=== PATIENT | female | born 1980 ===

== ENCOUNTER 2019-01-21 22:51 | Inpatient (IN) | payer MEDICAID ==
[2019-01-21] MEDS ORDERED: Misoprostol 200 MCG Tab PO PRN (23:09)
[2019-01-21] MEDS ORDERED: Methylergonovine 0.2 MG/1 ML Amp IM PRN (23:09)
[2019-01-21] MEDS ORDERED: Water For Irrigation,Sterile 1,000 ML Container IRR PRN (23:09)
[2019-01-21] MEDS ORDERED: Lidocaine 1% 50 ML MDV INJECT PRN (23:09)
[2019-01-21] MEDS ORDERED: Sodium Chloride 0.9% 2.5 ML Syringe FLUSH PRN (23:09)
[2019-01-21] MEDS ORDERED: Butorphanol 1 MG/ML SDV IVPUSH PRN (23:09)
[2019-01-21] MEDS ORDERED: Nalbuphine 10 MG/1 ML Vial IVPUSH PRN (23:09)
[2019-01-21] MEDS ORDERED: Carboprost Tromethamine 250 MCG/1 ML Amp IM PRN (23:09)
[2019-01-21] MEDS ORDERED: Tranexamic Acid 1,000 MG in Sodium Chloride 0.9% 100 ML IV PRN (23:09)
[2019-01-21] MEDS ORDERED: Sodium Chloride 0.9% 10 ML Syringe FLUSH PRN (23:09)
[2019-01-21] MEDS ORDERED: Terbutaline 1 MG/ML SDV SUBCUT PRN (23:10)
[2019-01-21] MEDS ORDERED: Misoprostol 25 MCG (1/4 of 100 MCG) Tab VAG PRN (23:10)
[2019-01-21] MEDS ORDERED: Oxytocin/0.9 % Sodium Chloride 30 UNIT/500 ML BAG IV SCH ×2 (23:15)
[2019-01-21] MEDS ORDERED: Misoprostol 25 MCG (1/4 of 100 MCG) Tab PO ONE (23:56)
[2019-01-22] MEDS: Misoprostol 25 MCG (1/4 of 100 MCG) Tab VAG PRN ×2 (00:10→04:21)
[2019-01-22] MEDS ORDERED: Ondansetron 4 MG/2 ML SDV IVPUSH PRN ×3 (00:51→23:37)
[2019-01-22] MEDS ORDERED: Misoprostol 25 MCG (1/4 of 100 MCG) Tab PO PRN (00:53)
[2019-01-22] MEDS: Lactated Ringers 1,000 ML IV SCH ×3 (08:25→11:48)
[2019-01-22] MEDS ORDERED: fentaNYL 100 MCG/2 ML SDV ONE (08:46)
[2019-01-22] MEDS ORDERED: Lidocaine HCl/EPINEPHrine 5 ML IJ ONE ×2 (08:46→09:54)
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
[2019-01-22] MEDS ORDERED: Benzocaine/Menthol 20%-0.5% Spray 78 GM Cannister TOP PRN (17:11)
[2019-01-22] MEDS ORDERED: Docusate Sodium 100 MG Cap PO PRN (17:11)
[2019-01-22] MEDS ORDERED: Acetaminophen 500 MG Tab PO PRN ×2 (17:11)
[2019-01-22] MEDS ORDERED: Bisacodyl 10 MG Supp RECTAL PRN ×2 (17:11→23:37)
[2019-01-22] MEDS ORDERED: Ibuprofen 400 MG Tab PO PRN (17:11)
[2019-01-22] MEDS ORDERED: oxyCODONE 5 MG Tab PO PRN (17:11)
[2019-01-22] MEDS ORDERED: Witch Hazel Medicated Pads 40/Jar TOP PRN (17:11)
[2019-01-22] MEDS ORDERED: Lanolin 100% Cream 7 GM Tube TOP PRN ×2 (17:11→23:37)
[2019-01-22] MEDS ORDERED: Ibuprofen 800 MG Tab PO PRN ×2 (17:11→23:37)
[2019-01-22] MEDS ORDERED: Bupivacaine 0.25% 10 ML SDV ONE ×2 (19:14→19:17)
[2019-01-22] MEDS ORDERED: Bupivacaine 0.5% 10 ML SDV ONE ×2 (19:14→20:24)
[2019-01-22] MEDS ORDERED: Morphine PF 10 MG/10 ML SDV ONE (21:09)
[2019-01-22] MEDS ORDERED: Octyl 2-Cyanoacrylate 1 Tube ONE (21:16)
[2019-01-22] MEDS ORDERED: Ketorolac 30 MG/ML SDV ONE (21:20)
[2019-01-22] MEDS ORDERED: Meperidine PF 25 MG/ML Syringe IVPUSH ONE (21:26)
[2019-01-22] MEDS ORDERED: HYDROmorphone 2 MG/ML SDV IVPUSH ONE (21:26)
[2019-01-22] MEDS ORDERED: fentaNYL 100 MCG/2 ML SDV IVPUSH PRN ×2 (21:26→23:22)
[2019-01-22] MEDS ORDERED: Acetaminophen/oxyCODONE 325-5 MG Tab PO PRN ×2 (23:22→23:37)
[2019-01-22] MEDS ORDERED: diphenhydrAMINE 50 MG/ML SDV IVPUSH PRN ×2 (23:22→23:37)
[2019-01-22] MEDS ORDERED: Naloxone 0.4 MG/ML Syringe IVPUSH PRN (23:22)
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
[2019-01-22] MEDS ORDERED: Lactated Ringers 1,000 ML IV SCH (23:45)
[2019-01-23] MEDS: Nalbuphine 10 MG/1 ML Vial IVPUSH PRN ×2 (00:44→06:36)
[2019-01-23] MEDS: Ketorolac 30 MG/ML SDV IVPUSH SCH ×5 (04:13→22:09)
--- NOTE | 2019-01-23 09:02 | PCM.OPNOTE ---
- General Post-Op/Procedure Note Date of Surgery/Procedure: 01/23/19 Operative Procedure(s): Primary C/section. Pre Op Diagnosis: IUP post date, Failar to progres Post-Op Diagnosis: Same Anesthesia Technique: Epidural Primary Surgeon: Junito Gibbons EBL in mLs: 800 Complications: None Condition: Good Free Text/Narrative:: Intake & Output 01/22/19 01/23/19 01/23/19 22:59 06:59 14:59 Intake Total 800 Balance 800
--- NOTE | 2019-01-23 09:06 | PCM.PNPP ---
- General Info Date of Service: 01/23/19 Functional Status: Reports: Pain Controlled - Review of Systems General: Reports: No Symptoms HEENT: Reports: No Symptoms Pulmonary: Reports: No Symptoms Cardiovascular: Reports: No Symptoms Gastrointestinal: Reports: No Symptoms Genitourinary: Reports: No Symptoms Musculoskeletal: Reports: No Symptoms Skin: Reports: No Symptoms Neurological: Reports: No Symptoms Psychiatric: Reports: No Symptoms - General Info Date of Service: 01/23/19 - Patient Data Vital Signs - Most Recent: Last Vital Signs Temp 36.6 C 01/23/19 07:00 Pulse 77 01/23/19 07:00 Resp 16 01/23/19 07:00 BP 94/50 L 01/23/19 07:00 Pulse Ox 96 01/23/19 07:00 Weight - Most Recent: 91.626 kg I&O - Last 24 Hours: Intake & Output 01/22/19 01/23/19 01/23/19 22:59 06:59 14:59 Intake Total 800 Balance 800 Lab Results - Last 24 Hours: Laboratory Results - last 24 hr 01/23/19 Range/Units 05:35 Hgb 8.8 L (12.0-16.0) g/dL Hct 26.2 L (36.0-46.0) % Med Orders - Current: Current Medications Bisacodyl (Dulcolax) 10 mg RECTAL ONETIME PRN PRN Reason: Constipation Butorphanol Tartrate (Stadol) 1 mg IVPUSH Q1H PRN PRN Reason: Pain Carboprost Tromethamine (Hemabate Ds) 250 mcg IM ASDIRECTED PRN PRN Reason: Post Hemorrhage Diphenhydramine HCl (Benadryl) 25 mg IVPUSH Q4H PRN PRN Reason: Itching Stop: 01/23/19 23:22 Diphenhydramine HCl (Benadryl) 25 mg IVPUSH Q6H PRN PRN Reason: Itching or Nausea Docusate Sodium (Colace) 100 mg PO BID AYSHA Emollient Ointment (Lansinoh Hpa) 0 gm TOP ASDIRECTED PRN PRN Reason: Sore Nipples Fentanyl (Sublimaze) 50 mcg IVPUSH Q5M PRN PRN Reason: Pain (severe 7-10) Stop: 01/23/19 21:27 Fentanyl (Sublimaze) 50 mcg IVPUSH Q1H PRN PRN Reason: Pain (severe 7-10) Lactated Ringer's (Ringers, Lactated) 1,000 mls @ 150 mls/hr IV ASDIRECTED [facility] Last Admin: 01/22/19 11:48 Dose: 150 mls/hr Oxytocin/Sodium Chloride (Oxytocin 30 Unit/500 Ml-Ns) 30 unit in 500 mls @ 500 mls/hr IV TITRATE [facility] Tranexamic Acid 1,000 mg/ (Sodium Chloride) 110 mls @ 660 mls/hr IV ONETIME PRN PRN Reason: Bleeding Oxytocin/Sodium Chloride (Oxytocin 30 Unit/500 Ml-Ns) 30 unit in 500 mls @ 2 mls/hr IV TITRATE [facility]; Protocol Last Admin: 01/22/19 13:27 Dose: 2 munits/min, 2 mls/hr Lactated Ringer's (Ringers, Lactated) 1,000 mls @ 125 mls/hr IV ASDIRECTED [facility] Last Admin: 01/23/19 00:44 Dose: 125 mls/hr Ibuprofen (Motrin) 800 mg PO Q8H PRN PRN Reason: mild pain or fever Ketorolac Tromethamine (Toradol) 30 mg IVPUSH Q6H [facility] Stop: 01/23/19 21:01 Last Admin: 01/23/19 04:14 Dose: 30 mg Lidocaine HCl (Xylocaine 1%) 50 ml INJECT ONETIME PRN PRN Reason: Laceration repair Methylergonovine Maleate (Methergine) 0.2 mg IM ASDIRECTED PRN PRN Reason: Post Hemorrhage Misoprostol (Cytotec) 200 mcg PO ONETIME PRN PRN Reason: Post Hemorrhage Misoprostol (Cytotec) 25 mcg VAG ONETIME PRN PRN Reason: Cervical Ripening Last Admin: 01/22/19 04:21 Dose: 25 mcg Misoprostol (Cytotec) 25 mcg VAG Q4H PRN PRN Reason: Cervical Ripening Last Admin: 01/22/19 04:20 Dose: 25 mcg Misoprostol (Cytotec) 25 mcg PO Q4H PRN PRN Reason: cervical ripening Nalbuphine HCl (Nubain) 10 mg IVPUSH Q1H PRN PRN Reason: Pain (severe 7-10) Nalbuphine HCl (Nubain) 5 mg IVPUSH ASDIRECTED PRN PRN Reason: Itching Last Admin: 01/23/19 06:36 Dose: 5 mg Naloxone HCl (Narcan) 0.1 mg IVPUSH ONETIME PRN PRN Reason: Respiratory Depression Stop: 01/23/19 23:22 Ondansetron HCl (Zofran) 4 mg IVPUSH Q6H PRN PRN Reason: Nausea/Vomiting Last Admin: 01/23/19 00:30 Dose: 4 mg Ondansetron HCl (Zofran) 4 mg IVPUSH Q6H PRN PRN Reason: Nausea Ondansetron HCl (Zofran) 4 mg IVPUSH Q4H PRN PRN Reason: Nausea/Vomiting Oxycodone/Acetaminophen (Percocet 325-5 Mg) 2 tab PO Q6H PRN PRN Reason: Pain (moderate 4-6) Oxycodone/Acetaminophen (Percocet 325-5 Mg) 1 tab PO Q4H PRN PRN Reason: Pain (moderate 4-6) Oxycodone/Acetaminophen (Percocet 325-5 Mg) 2 tab PO Q4H PRN PRN Reason: Pain (moderate 4-6) Sodium Chloride (Saline Flush) 10 ml FLUSH ASDIRECTED PRN PRN Reason: Keep Vein Open Sodium Chloride (Saline Flush) 2.5 ml FLUSH ASDIRECTED PRN PRN Reason: Keep Vein Open Sterile Water (Sterile Water For Irrigation) 1,000 ml IRR ASDIRECTED PRN PRN Reason: delivery Terbutaline Sulfate (Brethine) 0.25 mg SUBCUT ASDIRECTED PRN PRN Reason: Tacysystole Discontinued Medications Bupivacaine HCl (Sensorcaine-Mpf 0.5%) Confirm Administered Dose 10 ml .ROUTE .STK-MED ONE Stop: 01/22/19 19:15 Bupivacaine HCl (Sensorcaine-Mpf 0.25%) Confirm Administered Dose 10 ml .ROUTE .STK-MED ONE Stop: 01/22/19 19:15 Bupivacaine HCl (Sensorcaine-Mpf 0.25%) Confirm Administered Dose 10 ml .ROUTE .STK-MED ONE Stop: 01/22/19 19:18 Bupivacaine HCl (Sensorcaine-Mpf 0.5%) Confirm Administered Dose 10 ml .ROUTE .STK-MED ONE Stop: 01/22/19 20:25 Fentanyl (Sublimaze) Confirm Administered Dose 100 mcg .ROUTE .STK-MED ONE Stop: 01/22/19 08:47 Hydromorphone HCl (Dilaudid) 2 mg IVPUSH ONETIME ONE Stop: 01/22/19 21:27 Fentanyl/Bupivacaine HCl (Bqqslypf-Ysfrt-Br 2 Mcg/Ml-0.125%) Confirm Administered Dose 100 mls @ as directed .ROUTE .STK-MED ONE Stop: 01/22/19 08:47 Fentanyl/Bupivacaine HCl (Dqmxlpcp-Luaes-Fr 2 Mcg/Ml-0.125%) Confirm Administered Dose 100 mls @ as directed .ROUTE .STK-MED ONE Stop: 01/22/19 15:10 Ketorolac Tromethamine (Toradol) Confirm Administered Dose 30 mg .ROUTE .STK- MED ONE Stop: 01/22/19 21:21 Lidocaine/Epinephrine (Lidocaine 1.5%-Epi 1:200,000) Confirm Administered Dose 5 ml IJ .STK-MED ONE Stop: 01/22/19 08:47 Lidocaine/Epinephrine (Lidocaine 1.5%-Epi 1:200,000) Confirm Administered Dose 5 ml IJ .STK-MED ONE Stop: 01/22/19 09:55 Meperidine HCl (Demerol) 12.5 mg IVPUSH ONETIME ONE Stop: 01/22/19 21:27 Misoprostol (Cytotec) 25 mcg PO ONETIME ONE Stop: 01/21/19 23:57 Last Admin: 01/22/19 00:13 Dose: 25 mcg Morphine Sulfate (Duramorph Pf) Confirm Administered Dose 10 mg .ROUTE .STK-MED ONE Stop: 01/22/19 21:10 Octyl Cyanoacrylate (Dermabond Advance) Confirm Administered Dose 1 applic .ROUTE .STK-MED ONE Stop: 01/22/19 21:17 - Interaction Disposition, : [place] in Room with Family Infant Interaction: Holding Infant Feeding: Attempted ; Nursed Fair/Poor Support Person: Other (see below) - Recovery Exam Fundal Tone: Firm Fundal Level: At Umbilicus Fundal Placement: Midline Lochia Amount: Small Lochia Color: Rubra/Red Perineum Description: Other (see below) Other Perinuem Description: swollen-ice pack applied Episiotomy/Laceration: None Bladder Status: Indwelling Catheter in Place - Exam General: Alert, Oriented HEENT: Pupils Equal Neck: Supple Lungs: Clear to Auscultation, Normal Respiratory Effort Cardiovascular: Regular Rate, Regular Rhythm GI/Abdominal Exam: Normal Bowel Sounds, Soft, Non-Tender, No Organomegaly, No Distention, No Abnormal Bruit, No Mass, Pelvis Stable Extremities: Normal Inspection, Normal Range of Motion, Non-Tender, No Pedal Edema, Normal Capillary Refill Skin: Warm, Dry, Intact Wound/Incisions: Healing Well Neurological: No New Focal Deficit Psy/Mental Status: Alert, Normal Affect, Normal Mood - Problem List Review Problem List Initiated/Reviewed/Updated: Yes - My Orders Last 24 Hours: My Active Orders 01/22/19 17:11 May Shower [RC] ASDIRECTED Up ad Licha [RC] ASDIRECTED Vital Signs [RC] PER UNIT ROUTINE 01/22/19 21:00 Ketorolac [Toradol] 30 mg IVPUSH Q6H 01/22/19 23:37 Patient Status [ADT] Routine Ambulate [RC] PER UNIT ROUTINE Communication Order [RC] PER UNIT ROUTINE Communication Order [RC] PER UNIT ROUTINE Communication Order [RC] Per Unit Routine May Shower [RC] ASDIRECTED Notify Provider Intake and Out [RC] ASDIRECTED Notify Provider Vital Signs [RC] ASDIRECTED RT Incentive Spirometry [RC] Q2HWA Vital Signs [RC] PER UNIT ROUTINE Acetaminophen/oxyCODONE [Percocet 325-5 MG] 1 tab PO Q4H PRN Acetaminophen/oxyCODONE [Percocet 325-5 MG] 2 tab PO Q4H PRN Bisacodyl [Dulcolax] 10 mg RECTAL ONETIME PRN Ibuprofen [Motrin] 800 mg PO Q8H PRN Lanolin [Lansinoh HPA] See Dose Instructions TOP ASDIRECTED PRN Ondansetron [Zofran] 4 mg IVPUSH Q4H PRN diphenhydrAMINE [Benadryl] 25 mg IVPUSH Q6H PRN Assess Lochia [WOMSER] Per Unit Routine Assess Uterine Involution [WOMSER] Per Unit Routine Breast Pump [WOMSER] Per Unit Routine Peripheral IV Discontinue [OM.PC] Routine Sequential Compression Device [OM.PC] Per Unit Routine 01/22/19 23:38 Antiembolic Devices [RC] PER UNIT ROUTINE 01/22/19 23:45 Lactated Ringers [Ringers, Lactated] 1,000 ml IV ASDIRECTED 01/23/19 09:00 Docusate Sodium [Colace] 100 mg PO BID - Assessment Assessment:: Status post section postoperative day #1 patient is doing well Lam catheter is DC'd incision is clear normal location vital signs stable. Provide regular care and considering discharge in a.m. - Plan Plan:: Term admitted for elective induction.
[2019-01-23] MEDS: Docusate Sodium 100 MG Cap PO SCH ×2 (09:33→20:24)
--- NOTE | 2019-01-23 13:04 | OR ---
SURGEON: Junito Gibbons MD DATE OF PROCEDURE: PREOPERATIVE DIAGNOSIS: Intrauterine , 40 weeks plus failure to descend in persistent occiput posterior. POSTOPERATIVE DIAGNOSIS: Intrauterine , 40 weeks plus failure to descend in persistent occiput posterior. OPERATION PERFORMED: Primary low-transverse section. [employer] DIV[employer] LIEUTENANT: OR tech. ANESTHESIA: Epidural. ANESTHESIOLOGISTS: Nurse wildlife manager and Dr. Bernard. ESTIMATED BLOOD LOSS: 800 mL. NATIONAL SALES EXECUTIVE: Winnie Dalton MD COMPLICATIONS: None. INDICATION FOR SURGERY: This patient is 38 years old. She is followed in our practice. She is 40+ weeks. She is para 2-0-0-2, both of them delivered by spontaneous vaginal delivery. She is admitted for elective induction. The patient has responded to Cytotec and Pitocin. She progressed out slowly to complete vertex and 0 to +1 station. She pushed in excess of 2 hours without further descent of the fetus. I evaluated it and said the patient that the fetus was in an occiput posterior position. I explained that to the patient and I attempted to do a kiwi extraction and rotation that was unsuccessful, and so we proceeded to do primary low-transverse section. PROCEDURE IN DETAIL: The patient was brought to the OR, properly identified, and after adequate level of epidural anesthesia with a Lam catheter in the bladder, the patient was prepped and draped in sterile fashion as usual. After taking time-out, a low- transverse Pfannenstiel skin incision was done. Mario's fascia and rectus fascia were opened in direction of the incision. The two recti muscles were and peritoneal cavity was entered. Bladder flap was raised in the usual manner pushing the bladder away from the lower uterine segment. Low transverse uterine incision was done and extended manually with the hand. Fetus was in occiput posterior position and delivered without any problem and handed to Dr. Dalton, the engine maintenance mechanic who was requested at the time of delivery. The fetus cried immediately and later on, the scores were reported to be 8 and 9, the weight was not available. The placenta delivered spontaneous, complete, and intact, and then repair of the lower uterine segment was done with 2-0 Vicryl continuous interlocking in 2 layers. Reperitonealization done with 3-0 Vicryl continuous, and then the peritoneal cavity evacuated completely from all blood and blood clot and closed with 3-0 Vicryl continuous. The rectus fascia was closed with #1 PDS double strand continuous, the Mario's fascia with 3-0 Vicryl continuous, and the skin was closed with skin clips, Insorb, and Dermabond. Instrument and sponge counts were correct. The patient tolerated the procedure well, went to recovery room in stable general condition. GWEN / GIANCARLO /[id number]
[2019-01-24] MEDS: Acetaminophen/oxyCODONE 325-5 MG Tab PO PRN ×2 (05:10→12:25)
[2019-01-24] MEDS: Docusate Sodium 100 MG Cap PO SCH (09:06)
--- NOTE | 2019-01-24 09:20 | PCM.DCSUM1 ---
Discharge Summary - Hospital Course Diagnosis: Stroke: No - Discharge Data Discharge Date: 01/24/19 Discharge Disposition: Home, Self-Care 01 Condition: Good - Patient Summary/Data Operative Procedure(s) Performed: Primary C/section. - Patient Instructions Diet: Usual Diet as Tolerated Activity: As Tolerated Driving: Do Not Drive Showering/Bathing: May Shower Wound/Incision Care: Keep Operative Site/Wound Site Clean and Dry - Discharge Plan Home Medications: Home Meds Docusate Sodium [Colace] 50 mg PO DAILY 01/21/19 [History] Piv177/FA/Omega3/Dha/Fish Oil [ Gummies] 1 tab PO DAILY 01/21/19 [ History] Referrals: [facility] [Outside] Junito Gibbons MD [Physician] - 03/04/19 1:30 pm (1 week 01/29 @8:[address] Gibbons) - Discharge Summary/Plan Comment DC Time >30 min.: Yes - General Info Date of Service: 01/24/19 Functional Status: Reports: Pain Controlled - Review of Systems General: Reports: No Symptoms HEENT: Reports: No Symptoms Pulmonary: Reports: No Symptoms Cardiovascular: Reports: No Symptoms Gastrointestinal: Reports: No Symptoms Genitourinary: Reports: No Symptoms Musculoskeletal: Reports: No Symptoms Skin: Reports: No Symptoms Neurological: Reports: No Symptoms Psychiatric: Reports: No Symptoms - Patient Data Vitals - Most Recent: Last Vital Signs Temp 36.6 C 01/24/19 07:50 Pulse 89 01/24/19 07:50 Resp 18 01/24/19 07:50 BP 99/52 L 01/24/19 07:50 Pulse Ox 98 01/24/19 07:50 Weight - Most Recent: 91.626 kg Med Orders - Current: Current Medications Bisacodyl (Dulcolax) 10 mg RECTAL ONETIME PRN PRN Reason: Constipation Butorphanol Tartrate (Stadol) 1 mg IVPUSH Q1H PRN PRN Reason: Pain Carboprost Tromethamine (Hemabate Ds) 250 mcg IM ASDIRECTED PRN PRN Reason: Post Hemorrhage Diphenhydramine HCl (Benadryl) 25 mg IVPUSH Q6H PRN PRN Reason: Itching or Nausea Docusate Sodium (Colace) 100 mg PO BID AYSHA Last Admin: 01/24/19 09:06 Dose: 100 mg Emollient Ointment (Lansinoh Hpa) 0 gm TOP ASDIRECTED PRN PRN Reason: Sore Nipples Fentanyl (Sublimaze) 50 mcg IVPUSH Q1H PRN PRN Reason: Pain (severe 7-10) Lactated Ringer's (Ringers, Lactated) 1,000 mls @ 150 mls/hr IV ASDIRECTED [facility] Last Admin: 01/22/19 11:48 Dose: 150 mls/hr Oxytocin/Sodium Chloride (Oxytocin 30 Unit/500 Ml-Ns) 30 unit in 500 mls @ 500 mls/hr IV TITRATE AYSHA Tranexamic Acid 1,000 mg/ (Sodium Chloride) 110 mls @ 660 mls/hr IV ONETIME PRN PRN Reason: Bleeding Oxytocin/Sodium Chloride (Oxytocin 30 Unit/500 Ml-Ns) 30 unit in 500 mls @ 2 mls/hr IV TITRATE [facility]; Protocol Last Admin: 01/22/19 13:27 Dose: 2 munits/min, 2 mls/hr Lactated Ringer's (Ringers, Lactated) 1,000 mls @ 125 mls/hr IV ASDIRECTED [facility] Last Admin: 01/23/19 00:44 Dose: 125 mls/hr Ibuprofen (Motrin) 800 mg PO Q8H PRN PRN Reason: mild pain or fever Lidocaine HCl (Xylocaine 1%) 50 ml INJECT ONETIME PRN PRN Reason: Laceration repair Methylergonovine Maleate (Methergine) 0.2 mg IM ASDIRECTED PRN PRN Reason: Post Hemorrhage Misoprostol (Cytotec) 200 mcg PO ONETIME PRN PRN Reason: Post Hemorrhage Misoprostol (Cytotec) 25 mcg VAG ONETIME PRN PRN Reason: Cervical Ripening Last Admin: 01/22/19 04:21 Dose: 25 mcg Misoprostol (Cytotec) 25 mcg VAG Q4H PRN PRN Reason: Cervical Ripening Last Admin: 01/22/19 04:20 Dose: 25 mcg Misoprostol (Cytotec) 25 mcg PO Q4H PRN PRN Reason: cervical ripening Nalbuphine HCl (Nubain) 10 mg IVPUSH Q1H PRN PRN Reason: Pain (severe 7-10) Nalbuphine HCl (Nubain) 5 mg IVPUSH ASDIRECTED PRN PRN Reason: Itching Last Admin: 01/23/19 06:36 Dose: 5 mg Ondansetron HCl (Zofran) 4 mg IVPUSH Q6H PRN PRN Reason: Nausea/Vomiting Last Admin: 01/23/19 00:30 Dose: 4 mg Ondansetron HCl (Zofran) 4 mg IVPUSH Q6H PRN PRN Reason: Nausea Ondansetron HCl (Zofran) 4 mg IVPUSH Q4H PRN PRN Reason: Nausea/Vomiting Oxycodone/Acetaminophen (Percocet 325-5 Mg) 2 tab PO Q6H PRN PRN Reason: Pain (moderate 4-6) Oxycodone/Acetaminophen (Percocet 325-5 Mg) 1 tab PO Q4H PRN PRN Reason: Pain (moderate 4-6) Oxycodone/Acetaminophen (Percocet 325-5 Mg) 2 tab PO Q4H PRN PRN Reason: Pain (moderate 4-6) Last Admin: 01/24/19 05:10 Dose: 2 tab Sodium Chloride (Saline Flush) 10 ml FLUSH ASDIRECTED PRN PRN Reason: Keep Vein Open Sodium Chloride (Saline Flush) 2.5 ml FLUSH ASDIRECTED PRN PRN Reason: Keep Vein Open Sterile Water (Sterile Water For Irrigation) 1,000 ml IRR ASDIRECTED PRN PRN Reason: delivery Terbutaline Sulfate (Brethine) 0.25 mg SUBCUT ASDIRECTED PRN PRN Reason: Tacysystole Discontinued Medications Bupivacaine HCl (Sensorcaine-Mpf 0.5%) Confirm Administered Dose 10 ml .ROUTE .STEmerging Threats-MED ONE Stop: 01/22/19 19:15 Last Admin: 01/23/19 12:41 Dose: Not Given Bupivacaine HCl (Sensorcaine-Mpf 0.25%) Confirm Administered Dose 10 ml .ROUTE .STEmerging Threats-MED ONE Stop: 01/22/19 19:15 Last Admin: 01/23/19 12:41 Dose: Not Given Bupivacaine HCl (Sensorcaine-Mpf 0.25%) Confirm Administered Dose 10 ml .ROUTE .STEmerging Threats-MED ONE Stop: 01/22/19 19:18 Last Admin: 01/23/19 12:42 Dose: Not Given Bupivacaine HCl (Sensorcaine-Mpf 0.5%) Confirm Administered Dose 10 ml .ROUTE .STK-MED ONE Stop: 01/22/19 20:25 Last Admin: 01/23/19 12:42 Dose: Not Given Diphenhydramine HCl (Benadryl) 25 mg IVPUSH Q4H PRN PRN Reason: Itching Stop: 01/23/19 23:22 Fentanyl (Sublimaze) Confirm Administered Dose 100 mcg .ROUTE .STK-MED ONE Stop: 01/22/19 08:47 Last Admin: 01/23/19 12:41 Dose: Not Given Fentanyl (Sublimaze) 50 mcg IVPUSH Q5M PRN PRN Reason: Pain (severe 7-10) Stop: 01/23/19 21:27 Hydromorphone HCl (Dilaudid) 2 mg IVPUSH ONETIME ONE Stop: 01/22/19 21:27 Last Admin: 01/23/19 12:43 Dose: Not Given Fentanyl/Bupivacaine HCl (Rlrdmdsi-Fzegg-Lp 2 Mcg/Ml-0.125%) Confirm Administered Dose 100 mls @ as directed .ROUTE .STK-MED ONE Stop: 01/22/19 08:47 Last Admin: 01/23/19 12:40 Dose: Not Given Fentanyl/Bupivacaine HCl (Ltimxpro-Ouvgk-Dk 2 Mcg/Ml-0.125%) Confirm Administered Dose 100 mls @ as directed .ROUTE .STK-MED ONE Stop: 01/22/19 15:10 Last Admin: 01/23/19 12:41 Dose: Not Given Ketorolac Tromethamine (Toradol) Confirm Administered Dose 30 mg .ROUTE .STK- MED ONE Stop: 01/22/19 21:21 Ketorolac Tromethamine (Toradol) 30 mg IVPUSH Q6H AYSHA Stop: 01/23/19 21:01 Last Admin: 01/23/19 22:09 Dose: 30 mg Lidocaine/Epinephrine (Lidocaine 1.5%-Epi 1:200,000) Confirm Administered Dose 5 ml IJ .STK-MED ONE Stop: 01/22/19 08:47 Last Admin: 01/23/19 12:40 Dose: Not Given Lidocaine/Epinephrine (Lidocaine 1.5%-Epi 1:200,000) Confirm Administered Dose 5 ml IJ .STK-MED ONE Stop: 01/22/19 09:55 Last Admin: 01/23/19 12:41 Dose: Not Given Meperidine HCl (Demerol) 12.5 mg IVPUSH ONETIME ONE Stop: 01/22/19 21:27 Last Admin: 01/23/19 12:42 Dose: Not Given Misoprostol (Cytotec) 25 mcg PO ONETIME ONE Stop: 01/21/19 23:57 Last Admin: 01/22/19 00:13 Dose: 25 mcg Morphine Sulfate (Duramorph Pf) Confirm Administered Dose 10 mg .ROUTE .STK-MED ONE Stop: 01/22/19 21:10 Naloxone HCl (Narcan) 0.1 mg IVPUSH ONETIME PRN PRN Reason: Respiratory Depression Stop: 01/23/19 23:22 Octyl Cyanoacrylate (Dermabond Advance) Confirm Administered Dose 1 applic .ROUTE .STK-MED ONE Stop: 01/22/19 21:17 - Exam General: Reports: Alert, Oriented HEENT: Reports: Pupils Equal, Pupils Reactive, EOMI, Mucous Membr. Moist/[place]: Reports: Supple Lungs: Reports: Clear to Auscultation, Normal Respiratory Effort Cardiovascular: Reports: Regular Rate, Regular Rhythm GI/Abdominal Exam: Normal Bowel Sounds, Soft, Non-Tender, No Organomegaly, No Distention, No Abnormal Bruit, No Mass, Pelvis Stable (Female) Exam: Normal External Exam, Normal Speculum Exam, Normal Bimanual Exam Rectal (Female) Exam: Normal Exam, Normal Rectal Tone Back Exam: Reports: Normal Inspection, Full Range of Motion Extremities: Normal Inspection, Normal Range of Motion, Non-Tender, No Pedal Edema, Normal Capillary Refill Skin: Reports: Warm, Dry, Intact Wound/Incisions: Reports: Healing Well Neurological: Reports: No New Focal Deficit Psy/Mental Status: Reports: Alert, Normal Affect, Normal Mood
== END 2019-01-24 01:25 | disposition home or self-care (01) | DRG 787 ==
LOC: MW.OBCHECK 22:51 → MW.OB 23:09 → OBSVTOIN 01-22 20:57 → MW.OB 01-22 23:30
PROVIDERS: ADMIT Obstetrics & Gynecology; ATTEND Obstetrics & Gynecology
PROC: 10D00Z1 Extraction of Products of Conception, Low, Open Approach (ICD-10-PCS; principal; 2019-01-22)
PROC: 3E0P7VZ Introduction of Hormone into Female Reproductive, Via Natural or Artificial Opening (ICD-10-PCS; principal; 2019-01-22)
PROC: 10S07ZZ Reposition Products of Conception, Via Natural or Artificial Opening (ICD-10-PCS; principal; 2019-01-22)
PROC: 3E033VJ Introduction of Other Hormone into Peripheral Vein, Percutaneous Approach (ICD-10-PCS; principal; 2019-01-22)
PROC: 00HU33Z Insertion of Infusion Device into Spinal Canal, Percutaneous Approach (ICD-10-PCS; 2019-01-22)
PROC: 3E0R3BZ Introduction of Anesthetic Agent into Spinal Canal, Percutaneous Approach (ICD-10-PCS; 2019-01-22)
DX: O48.0 Post-term pregnancy (principal); O99.324 Drug use complicating childbirth; O99.334 Smoking (tobacco) complicating childbirth; F17.210 Nicotine dependence, cigarettes, uncomplicated; Z37.0 Single live birth; O64.0XX0 Obstructed labor due to incomplete rotation of fetal head, not applicable or unspecified; Z3A.40 40 weeks gestation of pregnancy; O99.344 Other mental disorders complicating childbirth; F41.9 Anxiety disorder, unspecified; F15.10 Other stimulant abuse, uncomplicated
CPT/HCPCS: 36415; 51702; 59025; 80305-QW; 85014; 85018; 85027; 86850; 86900; 86901; A9270-GY; J1885; J2270; J2300; J2405; J2590; J3010; J3490; J7120